=== PATIENT | female | born 1955 | race Caucasian/White ===

== ENCOUNTER 2018-06-20 18:29 | Emergency (ER) | payer BC, OTHER ==
[2018-06-20 18:54] VITALS: TEMP 98.2
[2018-06-20 19:20] LABS: BASOPHILS % (AUTO) 1 % (0-3); EOSINOPHILS % (AUTO) 3 % (0-9); HEMATOCRIT 41 % (35-47); HEMOGLOBIN 14.6 gm/dl (12.0-15.5); LYMPHOCYTES % (AUTO) 17.9 % (10-50); MEAN CORPUSCULAR HEMOGLOBIN 32.8 pg (27.0-32.0); MEAN CORPUSCULAR HGB CONC 35.6 gm/dl (32.0-36.0); MEAN CORPUSCULAR VOLUME 92 fL (81-99); MONOCYTES % (AUTO) 6.4 % (0-12); NEUTROPHILS % (AUTO) 72.1 % (37-80)
[2018-06-20 19:26] LABS: APPEARANCE,URINE Cloudy; BILIRUBIN,URINE 3+ (NEGATIVE); COLOR,URINE Red; GLUCOSE, URINE (UA) TRACE (NEGATIVE); KETONES,URINE 2+ (NEGATIVE); LEUKOCYTE ESTERASE ,URINE 3+ (NEGATIVE); NITRATE,URINE POSITIVE (NEGATIVE); OCCULT BLOOD,URINE 3+ (NEG-TRACE); PH,URINE 8.5; UROBILINOGEN,URINE >=8.0 (0.2-1.0 EU)
[2018-06-20 19:31] LABS: INR 0.9 (0.86-1.12)
[2018-06-20 19:36] LABS: ALBUMIN 4.3 gm/dl (3.4-5.0); BILIRUBIN,TOTAL 0.6 mg/dl (0.2-1.0); CALCIUM 9.3 mg/dl (8.5-10.1); CARBON DIOXIDE 26.7 mEq/L (21-32); CREATININE 0.84 mg/dl (0.60-1.00); POTASSIUM 3.4 mMol/L (3.5-5.1); TOTAL PROTEIN 7.6 gm/dl (6.4-8.2)
[2018-06-20 19:47] LABS: BACTERIA UNABLE (< 1+); CRYSTALS UNABLE (0-3 AVE/HPF); EPITHELIAL CELLS UNABLE (SQUAMOUS); ICTOTEST,URINE UNABLE (NEGATIVE); RBC,URINE TNTC (0-3AV/HPF); WBC,URINE UNABLE (0-5AV/HPF)
[2018-06-20] MEDS ORDERED: LEVOFLOXACIN 25 MG/ML 750 MG in SODIUM CHLORIDE 0.9% 250 ML 150 ML IV ONE (21:02)
[2018-06-20] MEDS ORDERED: LEVOFLOXACIN 25 MG/ML SOL IV ONE (21:11)
[2018-06-20 23:44] VITALS: RESP 16
[2018-06-20 23:46] VITALS: BP 94/77; PULSE 81; O2SAT 97
== END 2018-06-20 23:35 | disposition home or self-care (01) | DRG 690 ==
LOC: ED 18:29
DX: N30.90 Cystitis, unspecified without hematuria (principal); R31.9 Hematuria, unspecified
CPT/HCPCS: 36415; 74178; 80053; 81001; 85025; 85610; 87077; 87088; 87186; 96365; 96366; 99283; 99285; J1956; Q9967